=== PATIENT | female | born 1955 | race Hispanic/Latino ===

== ENCOUNTER 2017-09-03 01:09 | Emergency (ER) | payer SELFPAY ==
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
--- NOTE | 2017-09-03 07:43 | RAD ---
PROCEDURE: Radiographs of the left elbow. HISTORY: pain COMPARISON: No prior. FINDINGS: BONES: Olecranon fracture. JOINTS: Normal. No osteoarthritis. SOFT TISSUES: Normal. JOINT EFFUSION: None. OTHER FINDINGS: None IMPRESSION: Olecranon fracture.
--- NOTE | 2017-09-03 07:53 | RAD ---
PROCEDURE: Right Wrist Radiographs. HISTORY: fall/pain COMPARISON: None. FINDINGS: BONES: Normal. No fracture. JOINTS: Mild degenerative changes. Osteopenia. SOFT TISSUES: Normal. OTHER FINDINGS: None. IMPRESSION: Mild degenerative changes. Osteopenia.
--- NOTE | 2017-09-03 07:55 | RAD ---
HISTORY: pain COMPARISON: No prior FINDINGS: BONES: Normal. No fracture. JOINTS: Normal. No osteoarthritis. SOFT TISSUE: Normal. OTHER FINDINGS: None . IMPRESSION: Normal Bone Xray.
[2017-09-03 08:57] VITALS: BP 130/77; PULSE 81; RESP 18; TEMP 98.7; O2SAT 97
== END 2017-09-03 08:56 | disposition home or self-care (01) ==
LOC: H.ER 01:09
DX: S42.402A Unspecified fracture of lower end of left humerus, initial encounter for closed fracture (principal); S70.02XA Contusion of left hip, initial encounter; M79.641 Pain in right hand; Y04.0XXA Assault by unarmed brawl or fight, initial encounter; Y92.480 Sidewalk as the place of occurrence of the external cause; B02.9 Zoster without complications; M06.9 Rheumatoid arthritis, unspecified

== ENCOUNTER 2017-09-07 01:08 | Emergency (ER) | payer SELFPAY ==
[2017-09-07 01:29] VITALS: BP 112/71; PULSE 65; RESP 18; TEMP 98.5; O2SAT 99
--- NOTE | 2017-09-07 02:14 | ED PDOC ---
Upper Extremity Pain/Injury Time Seen by Provider: 09/07/17 01:34 Chief Complaint (Nursing): Upper Extremity Problem/Injury Chief Complaint (Provider): Upper Extremity Problem/Injury History Per: Patient History/Exam Limitations: no limitations Onset/Duration Of Symptoms: Days Current Symptoms Are (Timing): Still Present Additional Complaint(s): Dior Pascual is a 62 year old female with a past medical history of arthritis who is presenting to the ED for evaluation of left hand swelling. Patient states that she was diagnosed with left elbow fracture and had a splint applied a few days ago and now she complains of left hand swelling possibly due to tightness of the splint, she is asking for it to be adjusted. She denies any pain or numbness and denies any other medical complaints. Past Medical History Reviewed: Historical Data, Nursing Documentation, Vital Signs Vital Signs: Last Vital Signs Temp 98.5 F 09/07/17 01:25 Pulse 65 09/07/17 01:25 Resp 18 09/07/17 01:25 BP 112/71 09/07/17 01:25 Pulse Ox 99 09/07/17 01:25 - Medical History PMH: Arthritis, Rheumatoid Arthritis Denies: Chronic Kidney Disease - Surgical History Surgical History: No Surg Hx - Family History Family History: States: Unknown Family Hx - Social History Current smoker - smoking cessation education provided: No Alcohol: None Drugs: Denies - Home Medications Home Medications: Ambulatory Orders Medication Instructions Recorded traMADol [Ultram] 50 mg PO Q6 PRN #12 tab 09/03/17 - Allergies Allergies/Adverse Reactions: Allergies Allergy/AdvReac Type Severity Reaction Status Date / Time No Known Allergies Allergy Verified 09/03/17 01:31 Review of Systems ROS Statement: Except As Marked, All Systems Reviewed And Found Negative Musculoskeletal: Positive for: Hand Pain (swelling) Neurological: Negative for: Numbness Physical Exam - Reviewed Nursing Documentation Reviewed: Yes Vital Signs Reviewed: Yes - Physical Exam Comments: GENERAL APPEARANCE: Patient is awake, alert, oriented x 3, in no acute distress. SKIN: Warm, dry; (-) cyanosis. LEFT ARM: Orthoglass posterior elbow splint noted to left arm; moderate swelling to left hand. (+) distal pulses 2+, (+) normal capillary refill < 2sec , (+) distal sensation intact. NEURO AND PSYCH: Mental status as above. - ECG O2 Sat by Pulse Oximetry: 99 (RA) Pulse Ox Interpretation: Normal Medical Decision Making Medical Decision Making: Time: 1:40 Splint removed and a new orthoglass posterior elbow splint applied to the L arm by MIKI neurovascular intact post splint application. Patient reassured that swelling is expected from the fracture. Patient encouraged to follow up with orthopedics. Advised to follow up with primary care physician in 1-2 days without fail. Return to the emergency room at any time for any new or worsening symptoms, especially if there is increase in pain and numbness. Patient states she fully agrees with and understands discharge instructions. States that she agrees with the plan and disposition. Verbalized and repeated discharge instructions and plan. I have given the patient opportunity to ask any additional questions. Scribe Attestation: Documented by, Marycarmen Aguilar acting as a scribe for Ebony Vides PA-C. Provider Scribe Attestation: All medical record entries made by the Scribe were at my direction and personally dictated by me. I have reviewed the chart and agree that the record accurately reflects my personal performance of the history, physical exam, medical decision making, and the department course for this patient. I have also personally directed, reviewed, and agree with the discharge instructions and disposition. Disposition - Clinical Impression Clinical Impression: Elbow fracture - Patient ED Disposition Is Patient to be Admitted: No Counseled Patient/Family Regarding: Diagnosis, Need For Followup - Disposition Disposition: Routine/Home Disposition Time: 02:00 Condition: STABLE Additional Instructions: Thank you for letting us take care of you today. You were treated for L elbow fracture - splint adjustment. The emergency medical care you received today was directed at your acute symptoms. Return to the Emergency Department if your symptoms worsen, do not improve, or if you have any other problems. Please follow up with orthopedic doctor. Bring any paperwork you were given at discharge with you along with any medications you are taking to your follow up visit. Our treatment cannot replace ongoing medical care by a primary care provider (PCP) outside of the emergency department. Thank you for allowing the [facility] team to be part of your care today. 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
== END 2017-09-07 02:25 | disposition home or self-care (01) ==
LOC: H.ER 01:08
DX: M06.9 Rheumatoid arthritis, unspecified (principal)

== ENCOUNTER 2017-09-15 19:30 | Emergency (ER) | payer MEDICAID, OTHER ==
[2017-09-15 19:48] VITALS: BP 108/70; PULSE 62; RESP 18; TEMP 98; O2SAT 99
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
== END 2017-09-15 22:24 | disposition home or self-care (01) ==
LOC: H.ER 19:30
DX: S42.402D Unspecified fracture of lower end of left humerus, subsequent encounter for fracture with routine healing (principal); Y04.0XXD Assault by unarmed brawl or fight, subsequent encounter

== ENCOUNTER 2018-02-01 05:15 | Emergency (ER) | payer MEDICAID ==
[2018-02-01 07:37] LABS: BASO % 1.6 % (0.0-2.0); EOS # 0.1 K/uL (0.0-0.7); EOS % 6.2 % (0.0-4.0); HEMOGLOBIN 11.2 g/dL (12.0-16.0); LYMPH # 0.6 K/uL (1.0-4.3); LYMPH % 25.6 % (20.0-40.0); MEAN CORPUSCULAR HEMOGLOBIN 28.6 pg (27.0-31.0); MEAN CORPUSCULAR HGB CONC 32.5 g/dL (33.0-37.0); MEAN PLATELET VOLUME 7.9 fl (7.2-11.7); MONO # 0.7 K/uL (0.0-0.8); NEUT # 0.9 K/uL (1.8-7.0); NEUT % 38.6 % (50.0-75.0); NRBC % 0.2 % (0.0-0.0); PLATELET COUNT 187 K/uL (130-400); RBC 3.92 Mil/uL (3.80-5.20); RED CELL DISTRIBUTION WIDTH 13.7 % (11.5-14.5); WHITE BLOOD COUNT 2.3 K/uL (4.8-10.8)
[2018-02-01 07:48] LABS: BLOOD UREA NITROGEN 10 mg/dl (7-17); GFR NON-AFRICAN AMERICAN > 60
--- NOTE | 2018-02-01 08:02 | ED PDOC ---
HPI: Chest Pain Time Seen by Provider: 02/01/18 07:03 Chief Complaint (Nursing): Chest Pain Chief Complaint (Provider): Chest Pain History Per: Patient History/Exam Limitations: no limitations Onset/Duration Of Symptoms: Hrs (x 6) Current Symptoms Are (Timing): Better Quality: "Pain" Additional Complaint(s): 62 year old female with a history of rheumatoid arthritis, frequent shingle flare ups and a left elbow fracture (approximately five months ago) presents to the ED with midsternal chest pain x 6 hours ago. Patient reports pain lasted 1 m inute and resolved on its own, allowing her to fall back to sleep. She then awoke 4 hours later and felt as though she should be fully evaluated. Patient does not have a cardiac history, but reports that her heart "flutters" more often recently. She attributes her chest pain to eating gluten. Of note, her left arm is still in the splint that was placed in this ED in September. She admits that she did not follow up with an orthopedist as recommended because she did not feel as though it was necessary. Patient reports that her blood pressure is typically low and heart rate is normal. Beside from foul smelling cast, patient denies arm pain and any other complaints. Also denies shortness of breath, f ever, cough, leg swelling, recent travel and recent weight loss or gain. PMD: none provided Past Medical History Reviewed: Historical Data, Nursing Documentation, Vital Signs Vital Signs: Last Vital Signs Temp 97.9 F 02/01/18 06:50 Pulse 48 L 02/01/18 06:50 Resp 15 02/01/18 06:50 BP 112/73 02/01/18 06:50 Pulse Ox 97 02/01/18 06:50 - Medical History PMH: Arthritis, Fractures (LT elbow fracture 09/2017), Rheumatoid Arthritis Denies: Chronic Kidney Disease - Surgical History Surgical History: No Surg Hx - Family History Family History: States: Unknown Family Hx - Home Medications Home Medications: Ambulatory Orders Medication Instructions Recorded traMADol [Ultram] 50 mg PO Q6 PRN #12 tab 09/03/17 Acetaminophen [Acetaminophen 8 650 mg PO Q8 PRN #28 tablet.er 09/15/17 Hour] - Allergies Allergies/Adverse Reactions: Allergies Allergy/AdvReac Type Severity Reaction Status Date / Time No Known Allergies Allergy Verified 09/15/17 19:44 Review of Systems ROS Statement: Except As Marked, All Systems Reviewed And Found Negative Constitutional: Negative for: Fever, Chills, Weight loss (or gain) Cardiovascular: Positive for: Chest Pain (midsternal; resolved spontaneously before arrival ) Respiratory: Negative for: Cough, Shortness of Breath Musculoskeletal: Negative for: Leg Pain (and swelling) Physical Exam - Reviewed Nursing Documentation Reviewed: Yes Vital Signs Reviewed: Yes - Physical Exam Appears: Positive for: Non-toxic, No Acute Distress Head Exam: Positive for: ATRAUMATIC, NORMAL INSPECTION, NORMOCEPHALIC Skin: Positive for: Normal Color (well healing abrasion to the right forehead which she states is from shingles), Warm, Dry, Rash (multiple scabs to the right arm which she states is from previous rash without drainage, pustules and signs of infection) Eye Exam: Positive for: EOMI, Normal appearance, PERRL Neck: Positive for: Normal, Painless ROM, Supple Cardiovascular/Chest: Positive for: Bradycardia (at mid 50s). Negative for: Murmur Respiratory: Positive for: Normal Breath Sounds Extremity: Positive for: Normal ROM (full ROM of upper and lower extremities including left shoudler and fingers; sensation intact at fingers), Capillary Refill (<2 seconds in left arm), Other (foul smelling, dirty cast on left arm). Negative for: Deformity, Swelling Neurologic/Psych: Positive for: Alert, Oriented. Negative for: Motor/Sensory Deficits - Laboratory Results Result Diagrams: 02/01/18 07:20 02/01/18 07:20 - ECG O2 Sat by Pulse Oximetry: 97 (RA) Pulse Ox Interpretation: Normal Medical Decision Making Medical Decision Makin:14 MDM: workup for episode of chest pain x 6 hours ago EKG, CXR and cardiac enzymes ordered Referral to orthopedist for follow up 1045 Pt with normal labs. HEART score of 1 (for age) with low risk. Pt given mary ruvalcaba for orthopedics and chart review reveals that the patient was given instructions for orthopedic follow up in September which she never attended. The importance of follow up with the orthopedist as well as PMD was discussed with the patient. Return parameters discussed. Scribe Attestation: Documented by Soledad Cunningham acting as a scribe for Dior Cevallos MD Provider Scribe Attestation: All medical record entries made by the Scribe were at my direction and personally dictated by me. I have reviewed the chart and agree that the record accurately reflects my personal performance of the history, physical exam, medical decision making, and the department course for this patient. I have also personally directed, reviewed, and agree with the discharge instructions and disposition. Disposition - Clinical Impression Clinical Impression: Atypical chest pain - Disposition Referrals: Marshal Walsh III, MD [Staff Provider] - Disposition: Routine/Home Disposition Time: 10:49 Condition: IMPROVED Additional Instructions: Your cardiac workup today shows no abnormalities. You need to follow up with your primary doctor or the orthopedic surgeon (as referred) for further ev aluation of your fracture and for the cast removal. Return to the emergency department if symptoms worsen. Instructions: Chest Pain That Is Not Caused by the Heart (DC) Forms: [employer] (Arabic) Print Language: BELARUSIAN
[2018-02-01 08:13] LABS: B-TYPE NATRIURETIC PEPTIDE 357 pg/ml (0-900)
[2018-02-01 09:01] LABS: BASOPHIL 1 % (0-2); EOSINOPHIL 1 % (0-7); LYMPHOCYTE 26 % (20-50); MONOCYTE 28 % (0-10); NEUTROPHIL 44 % (42-75); TOTAL CELLS COUNTED 100
[2018-02-01 09:02] LABS: HYPOCHROMIC SLIGHT; PLATELET ESTIMATE NORMAL (NORMAL)
[2018-02-01 11:02] VITALS: BP 97/51; PULSE 60; RESP 18; TEMP 98; O2SAT 99
--- NOTE | 2018-02-01 13:09 | RAD ---
Date of service: 02/01/2018 HISTORY: possible admission COMPARISON: 05/04/2010 FINDINGS: LUNGS: No active pulmonary disease. PLEURA: No significant pleural effusion identified, no pneumothorax apparent. CARDIOVASCULAR: No aortic atherosclerotic calcification present. Normal cardiac size. No pulmonary vascular congestion. OSSEOUS STRUCTURES: No significant abnormalities. VISUALIZED UPPER ABDOMEN: Normal. OTHER FINDINGS: None. IMPRESSION: No active disease.
--- NOTE | 2018-02-01 14:54 | CARD ---
APPROVED REPORT Date of service: 02/01/2018 EKG Measurement Heart [id number] <Conclusion> Sinus bradycardia Otherwise normal ECG
== END 2018-02-01 10:55 | disposition home or self-care (01) ==
LOC: H.ER 05:15
DX: R07.89 Other chest pain (principal); M06.9 Rheumatoid arthritis, unspecified

== ENCOUNTER 2018-02-14 23:29 | Emergency (ER) | payer MEDICAID ==
[2018-02-15] MEDS ORDERED: Albuterol-Ipratrop 3 mg / 0.5 (3 ml) UD INH STA (00:09)
[2018-02-15] MEDS ORDERED: Promethazine/Cod 6.25mg-10mg/5ml Syr UD PO STA (00:09)
--- NOTE | 2018-02-15 00:14 | ED PDOC ---
HPI: CCC, URI, Sore Throat Time Seen by Provider: 02/14/18 23:45 Chief Complaint (Nursing): Chest Pain Chief Complaint (Provider): cough History Per: Patient History/Exam Limitations: no limitations Onset/Duration Of Symptoms: Days (3) Current Symptoms Are (Timing): Still Present Additional Complaint(s): 62 y/o female presents for evaluation of cough and congestion x 3 days. Patient reports cough worsened today, and now reports pain in chest and abdomen when she coughs. Denies fever, ear pain, nausea/vomiting, shortness of breath, palpitations, changes in bowel movements, urinary symptoms, recent travel, sick contacts. No medications taken for relief thus far. Past Medical History Reviewed: Historical Data, Nursing Documentation, Vital Signs Vital Signs: Last Vital Signs Temp 98.4 F 02/14/18 23:32 Pulse 81 02/14/18 23:32 Resp 18 02/14/18 23:32 BP 114/79 02/14/18 23:32 Pulse Ox 97 02/14/18 23:32 - Medical History PMH: Arthritis, Fractures (LT elbow fracture 09/2017), Rheumatoid Arthritis Denies: Chronic Kidney Disease - Family History Family History: States: Unknown Family Hx - Home Medications Home Medications: Ambulatory Orders Medication Instructions Recorded traMADol [Ultram] 50 mg PO Q6 PRN #12 tab 09/03/17 Acetaminophen [Acetaminophen 8 650 mg PO Q8 PRN #28 tablet.er 09/15/17 Hour] Albuterol HFA [Ventolin HFA 90 1 puff IH Q4 PRN #1 inh 02/15/18 mcg/actuation (8 g)] Azithromycin [Zithromax] 250 mg PO DAILY #1 packet 02/15/18 Fluticasone Nasal [Flonase] 1 actuation NS BID #1 bottle 02/15/18 Prednisone 50 mg PO DAILY #4 tablet 02/15/18 - Allergies Allergies/Adverse Reactions: Allergies Allergy/AdvReac Type Severity Reaction Status Date / Time No Known Allergies Allergy Verified 09/15/17 19:44 Review of Systems ROS Statement: Except As Marked, All Systems Reviewed And Found Negative ENT: Positive for: Nose Congestion Respiratory: Positive for: Cough, Sputum Physical Exam - Reviewed Nursing Documentation Reviewed: Yes Vital Signs Reviewed: Yes - Physical Exam Appears: Positive for: Well, Non-toxic, Uncomfortable (persistent coughing) Head Exam: Positive for: ATRAUMATIC, NORMAL INSPECTION, NORMOCEPHALIC Skin: Positive for: Normal Color Eye Exam: Positive for: Normal appearance ENT: Positive for: Normal ENT Inspection Neck: Positive for: Normal, Painless ROM Cardiovascular/Chest: Positive for: Regular Rate, Rhythm. Negative for: Chest Non Tender (tender to palpate anterior chest wall; no edema, ecchymosis noted) Respiratory: Positive for: Normal Breath Sounds Gastrointestinal/Abdominal: Positive for: Normal Exam Back: Positive for: Normal Inspection Extremity: Positive for: Normal ROM, Other (splint left upper extremity; digits exposed, cap refill <3 sec. ) Neurologic/Psych: Positive for: Alert, Oriented (x3) - ECG O2 Sat by Pulse Oximetry: 97 - Radiology X-Ray: Viewed By Nh X-Ray Interpretation: No Acute Disease - Progress ED Course And Treament: -influenza swab -cxr -duoneb x 1 -promethazine with codeine -prednisone PO Patient educated on findings, discharged with rx Zpak, flonase, albuterol HFA, prednisone Advised follow up PMD within 2-3 days Return precautions given Disposition - Clinical Impression Clinical Impression: Bronchitis - Patient ED Disposition Is Patient to be Admitted: No Counseled Patient/Family Regarding: Studies Performed, Diagnosis, Need For Followup, Rx Given - Disposition Referrals: [facility] [Outside] [facility] [Outside] Marshal Walsh III, MD [Staff Provider] - Disposition: Routine/Home Disposition Time: 01:16 Condition: IMPROVED Prescriptions: Albuterol HFA [Ventolin HFA 90 mcg/actuation (8 g)] 1 puff IH Q4 PRN #1 inh PRN Reason: Wheezing Azithromycin [Zithromax] 250 mg PO DAILY #1 packet Fluticasone Nasal [Flonase] 1 actuation NS BID #1 bottle Prednisone 50 mg PO DAILY #4 tablet Instructions: Acute Bronchitis Forms: [employer] (Bulgarian)
[2018-02-15] MEDS ORDERED: Albuterol-Ipratrop 3 mg / 0.5 (3 ml) UD ONE (00:19)
[2018-02-15] MEDS ORDERED: Promethazine/Cod 6.25mg-10mg/5ml Syr UD ONE (00:19)
[2018-02-15 01:47] VITALS: BP 114/72; PULSE 76; RESP 16; TEMP 97.9; O2SAT 98
--- NOTE | 2018-02-15 08:09 | RAD ---
Date of service: 02/15/2018 HISTORY: cough COMPARISON: Frontal chest radiograph 02/01/2018. TECHNIQUE: Chest PA and lateral FINDINGS: LUNGS: No active pulmonary disease. PLEURA: No significant pleural effusion identified. No pneumothorax apparent. CARDIOVASCULAR: No aortic atherosclerotic calcification present. Normal cardiac size. No pulmonary vascular congestion. OSSEOUS STRUCTURES: No significant abnormalities. VISUALIZED UPPER ABDOMEN: Normal. OTHER FINDINGS: None. IMPRESSION: No interval acute cardiopulmonary disease appreciated.
== END 2018-02-15 01:50 | disposition home or self-care (01) ==
LOC: H.ER 23:29
DX: J40 Bronchitis, not specified as acute or chronic (principal); M06.9 Rheumatoid arthritis, unspecified; Z79.899 Other long term (current) drug therapy

== ENCOUNTER 2018-02-15 23:35 | Emergency (ER) | payer MEDICAID ==
[2018-02-16] MEDS ORDERED: Albuterol-Ipratrop 3 mg / 0.5 (3 ml) UD INH STA (01:10)
[2018-02-16] MEDS ORDERED: Promethazine/Cod 6.25mg-10mg/5ml Syr UD PO STA (01:10)
[2018-02-16] MEDS ORDERED: Promethazine/Cod 6.25mg-10mg/5ml Syr UD ONE (01:50)
[2018-02-16] MEDS ORDERED: Albuterol-Ipratrop 3 mg / 0.5 (3 ml) UD ONE (01:51)
--- NOTE | 2018-02-16 02:44 | ED PDOC ---
HPI: Influenza Time Seen by Provider: 02/16/18 00:54 Chief Complaint: Cough, Cold, Congestion Chief Complaint (Provider): Cough, Cold, Congestion History Per: Patient Exam Limitations: no limitations Additional complaint(s):: 62 y/o homeless female presents to the ED complaining of cough. Patient was diagnosed with bronchitis yesterday but states she did not fill her prescription yet because she did not have time. Patient is reporting continued shortness of breath and cough. Patient states the cough is dry. No associated fever. She had a chest x-ray performed yesterday that was normal. Past Medical History Reviewed: Historical Data, Nursing Documentation, Vital Signs Vital Signs: Last Vital Signs Temp 98.6 F 02/16/18 00:35 Pulse 75 02/16/18 00:35 Resp 20 02/16/18 00:35 BP 121/74 02/16/18 00:35 Pulse Ox 98 02/16/18 00:35 - Medical History PMH: Arthritis, Bronchitis, Fractures (LT elbow fracture 09/2017), Rheumatoid Arthritis Denies: Chronic Kidney Disease - Surgical History Surgical History: No Surg Hx - Family History Family History: States: Unknown Family Hx - Living Arrangements Living Arrangements: Other (Homeless) - Home Medications Home Medications: Ambulatory Orders Medication Instructions Recorded traMADol [Ultram] 50 mg PO Q6 PRN #12 tab 09/03/17 Acetaminophen [Acetaminophen 8 650 mg PO Q8 PRN #28 tablet.er 09/15/17 Hour] Albuterol HFA [Ventolin HFA 90 1 puff IH Q4 PRN #1 inh 02/15/18 mcg/actuation (8 g)] Azithromycin [Zithromax] 250 mg PO DAILY #1 packet 02/15/18 Fluticasone Nasal [Flonase] 1 actuation NS BID #1 bottle 02/15/18 Prednisone 50 mg PO DAILY #4 tablet 02/15/18 - Allergies Allergies/Adverse Reactions: Allergies Allergy/AdvReac Type Severity Reaction Status Date / Time No Known Allergies Allergy Verified 09/15/17 19:44 Review of Systems ROS Statement: Except As Marked, All Systems Reviewed And Found Negative Respiratory: Positive for: Cough, Shortness of Breath Physical Exam - Reviewed Nursing Documentation Reviewed: Yes Vital Signs Reviewed: Yes - Physical Exam Appears: Positive for: Well, Non-toxic, No Acute Distress Head Exam: Positive for: ATRAUMATIC, NORMOCEPHALIC Skin: Positive for: Normal Color, Warm, Dry Eye Exam: Positive for: EOMI, Normal appearance, PERRL Neck: Positive for: Normal, Painless ROM Cardiovascular/Chest: Positive for: Regular Rate, Rhythm. Negative for: Murmur Respiratory: Positive for: Normal Breath Sounds. Negative for: Respiratory Distress Gastrointestinal/Abdominal: Positive for: Normal Exam, Soft. Negative for: Tenderness Extremity: Positive for: Normal ROM. Negative for: Pedal Edema, Deformity Neurologic/Psych: Positive for: Alert, Oriented. Negative for: Motor/Sensory Deficits Medical Decision Making Medical Decision Making: Time: 01:26 Impression: 62 y/o with cough Initial Plan: * Trial of Duoneb * Promethazine Codeine * Prednisone 05:34 Patient reports marked improvement of symptoms after receiving Heliox. Patient is stable for discharge. Diagnosis is bronchitis. Provider reinforced importance to find the time to get prescription filled. Scribe Attestation: Documented by Edwin Bauer, acting as a scribe for Ned Patterson MD. Provider Scribe Attestation: All medical record entries made by the Scribe were at my direction and personally dictated by me. I have reviewed the chart and agree that the record accurately reflects my personal performance of the history, physical exam, medical decision making, and the department course for this patient. I have also personally directed, reviewed, and agree with the discharge instructions and disposition. - ECG O2 Sat by Pulse Oximetry: 98 Disposition - Clinical Impression Clinical Impression: Bronchitis - Patient ED Disposition Is Patient to be Admitted: No - Disposition Disposition: Routine/Home Disposition Time: 05:34 Condition: STABLE Additional Instructions: AQUILES PAUL, thank you for letting us take care of you today. Your provider was Ned Patterson MD and you were treated for COUGHING. The emergency medical care you received today was directed at your acute symptoms. If you were prescribed any medication, please fill it and take as directed. It may take several days for your symptoms to resolve. Return to the Emergency Department if your symptoms worsen, do not improve, or if you have any other problems. Please contact your doctor or call one of the physicians/clinics you have been referred to that are listed on the Patient Visit Information form that is included in your discharge packet. Bring any paperwork you were given at discharge with you along with any medications you are taking to your follow up visit. Our treatment cannot replace ongoing medical care by a primary care provider outside of the emergency department. Thank you for allowing the [facility] team to be part of your care today. If you had an X-Ray or CT scan: A Radiologist will review the ED reading if any change in treatment is needed we will contact you. If you had a blood, urine, or wound culture: It will take several days for the results, if any change in treatment is needed we will contact you. If you had an STI test: It will take 48 hours for the results. Please call after 1 week if you have not heard back. Instructions: Acute Bronchitis Forms: [employer] (Maori)
[2018-02-16 05:58] VITALS: BP 111/69; PULSE 69; RESP 17; TEMP 97.9; O2SAT 99
== END 2018-02-16 06:08 | disposition home or self-care (01) ==
LOC: H.ER 23:35
DX: J40 Bronchitis, not specified as acute or chronic (principal)